=== PATIENT | female | born 1980 | race African-American/Black ===

== ENCOUNTER 2020-07-06 12:28 | Emergency (ER) | payer MEDICAID, OTHER ==
[~2020-07-06] VITALS: Ht 170.2 cm; Wt 176.7 kg
[2020-07-06 12:30] VITALS: BP 216/118
--- NOTE | 2020-07-06 12:39 | NUR ---
PATIENT WALKED BACK FROM TRIAGE WITH CHIEF C/O "I NEED AN ASTHMA TREATMENT." PATIENT REFUSING EKG, REFUSING TO GET INTO GOWN. PATIENT REPORTS SOB FOR A FEW HOURS, SHE STATES THE DEVICE SHE USES AT HOME TO DO HER BREATHING TREATMENT IS BROKEN. PATIENT WHEEZING, NO OTHER COMPLAINTS, ERMD AT BEDSIDE FOR EVALUATION, CALL LIGHT WITHIN REACH.
[2020-07-06] MEDS ORDERED: ALBUTEROL/IPRATROPIUM 2.5MG/0.5MG, 3 ML ONE (12:46)
--- NOTE | 2020-07-06 12:50 | NUR ---
BREATHING TREATMENT STARTED.
[2020-07-06] MEDS ORDERED: ALBUTEROL/IPRATROPIUM 2.5MG/0.5MG, 3 ML NPPB ONE (13:00)
--- NOTE | 2020-07-06 13:24 | NUR ---
task RN: breathing tx completed. chart up or MD recheck
--- NOTE | 2020-07-06 13:46 | NUR ---
Patient removed monitoring equipment, unable to get discharge vitals, patient refused. Patient given discharge instructions and they have confirmed that they understand the instructions. Patient stable and ambulatory with steady gait from ED to private vehicle.
== END 2020-07-06 13:47 | disposition home or self-care (01) ==
LOC: ED 13:40
DX: J45.41 Moderate persistent asthma with (acute) exacerbation (principal); E11.9 Type 2 diabetes mellitus without complications; F17.210 Nicotine dependence, cigarettes, uncomplicated
CPT/HCPCS: 94640; 99283